=== PATIENT | male | born 1980 | race Hispanic/Latino ===

== ENCOUNTER 2019-05-28 11:03 | Emergency (ER) | payer BC ==
[~2019-05-28] VITALS: Ht 172.7 cm; Wt 73.1 kg
[2019-05-28] MEDS ORDERED: DIATRIZOATE MEGL/DIATRIZOA SOD 30 ML BTL PO ONE (11:42)
[2019-05-28] MEDS ORDERED: SODIUM CHLORIDE 0.9% 50ML 50 ML ONE (12:54)
[2019-05-28] MEDS ORDERED: IOPAMIDOL 370 MG/ML 200 ML INFUS..BTL INJ ONE (12:54)
[2019-05-28 13:27] VITALS: BP 125/82
--- NOTE | 2019-05-28 13:32 | Diagnostic Imaging Report ---
CT Abdomen And Pelvis with Intravenous Contrast INDICATION: Left lower quadrant pain, cramping, diarrhea, rectal pain TECHNIQUE: Thin collimation axial images obtained from the diaphragm to the level of the pubic symphysis following the uneventful administration of 100 cc of low osmolar, nonionic intravenous contrast. Oral contrast was administered. Dose reduction techniques used: Automated exposure control, adjustment of the mAs and/or kVp according to patient size, standardized low-dose protocol, and/or iterative reconstruction technique. RADIATION DOSE: Total DLP: 568.23 mGy*cm Estimated effective dose: (DLP x 0.015 x size factor) mSv CTDIvol has been reviewed. It is below the limits set by the Radiation Protocol Committee (RPC). COMPARISON: None. ABDOMEN FINDINGS: Lung Bases: Clear. The visualized portions of the mediastinum are normal.. Liver: Normal attenuation. No evidence for mass. Gallbladder: Present and appears normal. No biliary ductal dilatation. Pancreas: Normal attenuation without mass or ductal dilatation. Spleen: Normal in size. No evidence of mass.. Adrenal Glands: No evidence for mass. Kidneys: Right: Normal enhancement. No soft tissue mass. No hydronephrosis. Left: Normal enhancement. No soft tissue mass. No hydronephrosis. Lymph Nodes: No enlarged abdominal or periaortic lymph nodes. Aorta: Normal in diameter PELVIS FINDINGS: Bowel: Stomach: Normal. Small Bowel: Normal in caliber with normal wall thickness. Large Bowel: There are a few scattered diverticula in the descending colon. There is mural thickening of the sigmoid colon suggestive of previous bouts of diverticulitis. No acute inflammation. No pericolonic inflammation. There are chain sutures at the base of the cecum. No rectal wall thickening or perirectal inflammation. Appendix: Absent. Bladder: Normal. Prostate gland and seminal vesicles are normal. Peritoneum/retroperitoneum: No free fluid or fluid collection. Bones: Unremarkable for age. Soft tissues: There is fat along the right spermatic cord. IMPRESSION: 1. Diverticulosis coli. No evidence of acute diverticulitis. No bowel obstruction. Normal-appearing rectum. 2. No other CT findings to explain left lower quadrant pain. Signed by: Dr. Ladonna Ga MD on 05/28/2019 1:28 PM
== END 2019-05-28 14:00 | disposition home or self-care (01) ==
LOC: FSED 11:03
DX: R10.84 Generalized abdominal pain (principal); E78.5 Hyperlipidemia, unspecified; K21.9 Gastro-esophageal reflux disease without esophagitis; Z83.79 Family history of other diseases of the digestive system
CPT/HCPCS: 74177; 80048; 80076; 81003; 82270; 85025; 99284; Q9967

== ENCOUNTER 2020-11-11 06:50 | Emergency (ER) | payer BC ==
[~2020-11-11] VITALS: Ht 172.7 cm; Wt 72.3 kg
[2020-11-11] MEDS ORDERED: PEPCID20 MG PO (07:28)
[2020-11-11] MEDS ORDERED: TESTOSTERO200 MG/11 IM (07:30)
[2020-11-11] MEDS ORDERED: FAMOTIDINE 20 MG/2 ML VIAL IV STA (08:03)
[2020-11-11] MEDS ORDERED: KETOROLAC TROMETHAMINE 30 MG/ML VIAL IV STA (08:03)
[2020-11-11] MEDS ORDERED: KETOROLAC TROMETHAMINE 30 MG/ML VIAL ONE (08:17)
[2020-11-11] MEDS ORDERED: FAMOTIDINE 20 MG/2 ML VIAL IV ONE (08:17)
[2020-11-11 10:20] VITALS: BP 105/70
[2020-11-11] MEDS ORDERED: PREDNISONE20 MG PO (10:22)
[2020-11-11] MEDS ORDERED: TYLENOL # 31 EA PO (10:23)
== END 2020-11-11 10:34 | disposition home or self-care (01) ==
LOC: FSED 07:37
DX: M54.12 Radiculopathy, cervical region (principal); E78.5 Hyperlipidemia, unspecified
CPT/HCPCS: 71046; 72040; 80053; 81003; 82553; 84484; 85025; 93005; 96374; 96375; 99284; J1885

== ENCOUNTER 2025-02-27 13:05 | Emergency (ER) | payer BC, OTHER ==
[~2025-02-27] VITALS: Ht 172.7 cm; Wt 70.3 kg
[~2025-02-27 13:05] MED LIST: PEPCID20 MG PO; PREDNISONE20 MG PO; TESTOSTERO200 MG/11 IM; TYLENOL # 31 EA PO
[2025-02-27] MEDS ORDERED: ONDANSETRON ODT4 MG PO (13:26)
[2025-02-27] MEDS ORDERED: IBUPROFEN800 MG PO (13:26)
[2025-02-27] MEDS ORDERED: DIPHENHYDRAMINE25 M2 PO (13:26)
[2025-02-27] MEDS ORDERED: BUTALB-ACETAMI1 EAC2 PO (13:26)
[2025-02-27] MEDS: LACTATED RINGER'S 1,000 ML INJ ONE (13:48)
[2025-02-27] MEDS: FAMOTIDINE 20 MG/2 ML VIAL IV ONE (13:48)
[2025-02-27] MEDS: KETOROLAC TROMETHAMINE 30 MG/ML VIAL IV STA (13:48)
[2025-02-27] MEDS: ONDANSETRON HCL INJ 2MG/ML 2ML 2 MG/ML VIAL IV ONE (13:48)
[2025-02-27] MEDS: DIPHENHYDRAMINE HCL INJ 50 MG/ML VIAL IV ONE (13:49)
[2025-02-27] MEDS: DEXAMETHASONE SOD PHOS INJ 4 MG/ML SDV IV ONE (13:49)
[2025-02-27] MEDS: METOCLOPRAMIDE HCL 10 MG/2ML VIAL IV ONE (17:05)
[2025-02-27 18:08] VITALS: PULSE 82; RESP 16; TEMP 97.9; O2SAT 99
== END 2025-02-27 18:08 | disposition home or self-care (01) ==
LOC: FSED 13:14
DX: R51.9 Headache, unspecified (principal); R11.2 Nausea with vomiting, unspecified; E78.5 Hyperlipidemia, unspecified; K21.9 Gastro-esophageal reflux disease without esophagitis; Z87.19 Personal history of other diseases of the digestive system
CPT/HCPCS: 70450; 80053; 81003; 85025; 96374; 96375; 99284; J1100; J1200; J1308; J1885; J2405; J2765; J7121